=== PATIENT | female | born 1965 | race Caucasian/White ===

== ENCOUNTER → 2016-11-05 | Outpatient (CLI) | payer MEDICAID ==
--- NOTE | 2016-11-05 18:03 | MA ---
Screening Digital Mammogram With iCAD Analysis Clinical Indications: Routine screening. A cyst was diagnosed with breast cancer in her 50s and mater nal grandmother in her 70s. Technique: Standard cephalocaudal projections are obtained. Digital breast tomosynthesis was performe d in the MLO projection with reconstruction at 1.0 mm slice thickness and composite MLO views reconst ructed. This examination is processed by the iCAD computer aided detection system. Comparison: No previous studies are available for comparison; new baseline study. Breast density: Type A: Fatty. Findings: CAD was reviewed. No masses, suspicious calcifications or secondary signs of malignancy are seen. There has been no significant change in the appearance of either breast. Impression: Negative mammogram. BI-RADS 1. Recommendation: Routine mammographic screening in one year as long as [facility]. Negative mammography should not preclude additional workup of a clinically suspicious finding. The patient's information is entered into a reminder system with a target due date for her next mammo gram.
== END ==
LOC: FIMAGING 12:53
DX: Z12.31 Encounter for screening mammogram for malignant neoplasm of breast (principal); Z80.3 Family history of malignant neoplasm of breast
CPT/HCPCS: G0202

== ENCOUNTER 2017-12-31 13:14 | Inpatient (IN) | payer MEDICAID ==
--- NOTE | 2017-12-31 13:50 | EDPHY ---
H & P Stated Complaint: constipation Time Seen by Provider: 12/31/17 13:36 HPI/ROS: CHIEF COMPLAINT: Abdominal distension time several weeks HISTORY OF PRESENT ILLNESS: 52-year-old female history of frequent alcohol use complaining of 7 weeks of progressively enlarging abdominal distension, loose stool, new onset scleral icterus over the past 1 week. She had previously been followed at the [facility] however has not been seen in quite some time. She was seen at urgent care 2 weeks ago and given medications for constipation. She was seen at her 1st visit with Dr. Bautista Ash yesterday with laboratory studies ordered at that point and had outpatient x-rays at [facility] today were abdomen. However she noticed new left ankle swelling today and was told to go to the ER by her PCP for evaluation. She denies abdominal pain. Denies nausea or vomiting. Denies fever chills. Denies melena hematochezia. Denies dyspnea. PRIMARY CARE PROVIDER: Dr. Bautista Ash REVIEW OF SYSTEMS: A ten point review of systems was performed and is negative with the exception of the items mentioned in the HPI PAST MEDICAL & SURGICAL HISTORY: x2 SOCIAL HISTORY:Frequent alcohol use PHYSICAL EXAM (Prior to examination, patient consented to physical exam, hands were washed and my usual and customary physical exam procedures followed) 1) GENERAL: Well-developed, well-nourished, alert and oriented. Appears to be in no acute distress. 2) HEAD: Normocephalic, atraumatic 3) HEENT: Pupils equal, round, reactive to light bilaterally. Positive scleral icterus Nasopharynx, oropharynx, clear, no lesions. Ears bilaterally with normal tympanic membranes. 4) NECK: Full range of motion, no meningeal signs. 5) LUNGS: Clear auscultation bilaterally, no wheezes, no rhonchi, no retractions. 6) HEART: Regular rate and rhythm, no murmur, no heave, no gallop. 7) ABDOMEN: Distended, nontender abdomen, 8) MUSCULOSKELETAL: Moving all extremities, no focal areas of tenderness, no obvious trauma. No peripheral edema or discoloration. 9) BACK: No CVA tenderness, no midline vertebral tenderness, no fluctuance, no step-off, no obvious trauma, no visual or palpable abnormality. 10) SKIN: No rash, no petechiae. 11) Psychiatric: Patient is oriented X 3, there is no agitation. DIFFERENTIAL DIAGNOSIS: In no particular include but limited to bowel obstruction, ascites, constipation - Personal History LMP (Females 10-55): Post Menopausal Current Tetanus/Diphtheria Vaccine: Unsure Current Tetanus Diphtheria and Acellular Pertussis (TDAP): Unsure - Medical/Surgical History Hx Asthma: No Hx Chronic Respiratory Disease: No Hx Diabetes: No Hx Cardiac Disease: No Hx Renal Disease: No Hx Cirrhosis: No Hx Alcoholism: Yes Hx HIV/AIDS: No Hx Splenectomy or Spleen Trauma: No Other PMH: 2 , tonsilectomy, SAFIA knee surgery, - Social History Smoking Status: Current some day smoker Constitutional: Initial Vital Signs Temperature (C) 36.9 C 12/31/17 13:21 Heart Rate 108 H 12/31/17 13:21 Respiratory Rate 16 12/31/17 13:21 Blood Pressure 111/84 H 12/31/17 13:21 O2 Sat (%) 96 12/31/17 13:21 O2 Delivery Mode Room Air Allergies/Adverse Reactions: No Known Allergies Allergy (Unverified 12/31/17 13:21) Home Medications: Medication Instructions Recorded Herbals/Supplements -Info Only 1 ea PO DAILY 12/31/17 Levothyroxine [Synthroid 88 mcg 88 mcg PO DAILY06 12/31/17 (*)] Magnesium Oxide [Magnesium Oxide 800 mg PO DAILY 12/31/17 400 mg (*)] Furosemide [Lasix 40 MG (*)] 40 mg PO DAILY #30 tab 01/01/18 Spironolactone [Aldactone] 50 mg PO DAILY #30 tab 01/01/18 Medical Decision Making ED Course/Re-evaluation: Patient was re-evaluated with serial examinations in the case discussed with secondary supine position Dr. Elvis Siddiqui in the ER. Patient has new onset, progressive ascites, jaundice. Plan will be admission. No altered mentation. 3:05 p.m.: Consultation with Dr. Omid Faith who will admit patient. Requested paracentesis be ordered - Data Points Laboratory Results: Laboratory Results 12/31/17 13:30 12/31/17 13:30 Medications Given: Discontinued Medications Furosemide (Lasix) 40 mg PO DAILY ANURADHA Stop: 06/30/18 08:59 Last Admin: 01/01/18 08:45 Dose: 40 mg Levothyroxine Sodium (Synthroid) 88 mcg PO DAILY06 ANURADHA Stop: 06/30/18 05:59 Last Admin: 01/01/18 05:21 Dose: 88 mcg Magnesium Oxide (Magnesium Oxide) 800 mg PO DAILY ANURADHA Stop: 06/30/18 08:59 Last Admin: 01/01/18 08:45 Dose: 800 mg Spironolactone (Aldactone) 50 mg PO DAILY ANURADHA Stop: 06/30/18 08:59 Last Admin: 01/01/18 08:45 Dose: 50 mg Departure - Departure Disposition: [facility] Acute Clinical Impression: Hyperbilirubinemia Ascites Qualifiers: Ascites type: due to alcoholic cirrhosis Qualified Code(s): K70.31 - Alcoholic cirrhosis of liver with ascites Condition: Fair
[2017-12-31 14:01] LABS: PLATELET COUNT 200 10^3/uL (150-400)
[2017-12-31 14:09] LABS: INR 1.3 (0.83-1.16); PROTIME(PATIENT) 16.4 SEC (12.0-15.0)
[2017-12-31] MEDS ORDERED: IOPAMIDOL (ISOVUE-300) 100 ML BTL ONE (14:38)
[2017-12-31] MEDS ORDERED: LIDOCAINE 1% 300 MG/30 ML SDV ONE (16:04)
--- NOTE | 2017-12-31 17:24 | PDRADPN ---
Radiology Procedure Note Date of Procedure: 12/31/17 Radiologist: Fabrice Crespo Anesthesia: Local (Specify) Pre-op Diagnosis: ascites Post-op Diagnosis: same Indication: distention Procedure: paracentesis Finding(s): ~2L clear yellow fluid Inf/Abcess present in the surg proc area at time of surgery?: No EBL: Minimal Specimen(s): yes
[2017-12-31] MEDS ORDERED: ONDANSETRON 4 MG/2 ML VIAL IVP PRN (18:03)
[2017-12-31] MEDS ORDERED: ONDANSETRON DISINTEGRATING 4 MG TAB PO PRN (18:03)
--- NOTE | 2017-12-31 18:52 | GHP ---
[f rep st] HISTORY AND PHYSICAL DATE OF ADMISSION: 12/31/2017 HISTORY OF PRESENT ILLNESS: The patient is a 52-year-old female with a history of hypothyroidism and previous very heavy alcohol use, who presents with the development of signs of liver disease in the last couple of days. It sounds like there is increasing abdominal girth in the last few days. She s aw her primary care doctor and was told she was constipated. Today, she presents with notable jaundi ce and pedal edema, as well as increasing abdominal distention. In the emergency department, she was found to have elevated liver tests and abdominal imaging consist ent with portal hypertension, cirrhosis, and ascites. She says she drank heavily for years, but has not had much alcohol in the last 6 years. She does not use IV drugs or has she ever. She is not a heavy Tylenol use. There is no family history of early liver disease. She has had a recent laryngitis-type viral illness, but nothing else. She has notice d a rash on her chest. She has had no black stool. No hematemesis. No coffee-ground emesis. REVIEW OF SYSTEMS: A complete 10-point review of systems was conducted and negative except as noted in the HPI. PAST MEDICAL HISTORY: 1. Hypothyroidism. 2. Heavy alcohol use. FAMILY HISTORY: Reviewed and unremarkable. ALLERGIES: No known drug allergies. HOME MEDICATIONS: Levothyroxine and mag oxide. SOCIAL HISTORY: Minimal alcohol now. She has a couple cigarettes a day. She is working at [email or web address]. 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 PHYSICAL EXAMINATION: VITAL SIGNS: Temp 37, blood pressure 111/84, pulse 108 and now 95, breathing 16 times a minute, 96% on room air. GENERAL: No acute distress. HEENT: Sclerae anicteric. Oropharynx is clear. Mucous membranes are moist. NECK: Supple, without lymphadenopathy or JVD. LUNGS: Clear to auscultation bilaterally. HEART: S1, S2. Not tachycardic. ABDOMEN: Distended. Her liver edge is palpable about 5 cm below the costal margin. There is ascite s. LOWER EXTREMITIES: Show trace edema bilaterally. Calves are nontender. SKIN: Shows spider hemangioma on the chest and broken blood vessels on her face. NEUROLOGIC: Exam is nonfocal. There is no asterixis. LABORATORY DATA: White count 13.5, hematocrit 36, MCV elevated at 105, platelets 200,000. INR is 1. 3. Sodium 130, potassium 3.7, chloride 95, bicarb 25, BUN 3, creatinine 0.4. Bilirubin 6.7, AST 159 , ALT 46, alkaline phosphatase 260. Lipase is 309, slightly elevated. Peritoneal fluid studies are pending. Abdominal CT images reviewed and interpreted by me showed portal hypertension, with evidenc e of patency of the portal vein and other veins and the hepatic vein. There is a gallstone with no e vidence of cholecystitis or biliary obstruction. There is a 2.5 cm solid caudate lobe lesion. Ultra sound of the lower extremities showed no DVT in the left leg. I have discussed the case with TORO Crowell, of the emergency department, as well as Dr. Serafin huff. ASSESSMENT AND PLAN: A 52-year-old female, who presents with cirrhosis. 1. Cirrhosis. The etiology is presumably alcohol. There is a bit of a lag time between her cessati on of alcohol, as she reports it, and the onset of symptoms. I have sent an acute hepatitis panel an d a Tylenol level. She does not have an active, fulminant hepatitis. I think the autoimmune workup can be withheld at this time. I will have GI see her tomorrow. 2. Ascites. The patient is clinically alert. I do not suspect spontaneous bacterial peritonitis, b ut the Gram stain is pending. I will follow up on that. I will also initiate diuretic therapy. 3. Hyponatremia. This is mild. 4. New cirrhosis. Addendum: I will send iron studies as well. 5. Coagulopathy secondary to liver disease. 6. Jaundice secondary to liver disease. 7. Prophylaxis. Pharmacologic prophylaxis is contraindicated by liver disease and coagulopathy. DISPOSITION: Inpatient status. /[id number]/MODL
[2018-01-01 05:20] LABS: PLATELET COUNT 180 10^3/uL (150-400)
[2018-01-01 05:38] LABS: INR 1.41 (0.83-1.16); PROTIME(PATIENT) 17.4 SEC (12.0-15.0)
[2018-01-01] MEDS ORDERED: LEVOTHYROXINE 88 MCG TAB PO SCH (06:00)
[2018-01-01 06:22] LABS: HEPATITIS B SURFACE ANTIGEN NEGATIVE (NEGATIVE)
[2018-01-01 06:28] LABS: HEPATITIS A ANTIBODY IGM (BCH) NEGATIVE (NEGATIVE); HEPATITIS B CORE AB IGM NEGATIVE (NEGATIVE)
[2018-01-01 06:39] LABS: HEPATITIS C ANTIBODY TOTAL NEGATIVE (NEGATIVE)
[2018-01-01 08:15] VITALS: RESP 16
[2018-01-01] MEDS ORDERED: SPIRONOLACTONE 50 MG TAB PO SCH (09:00)
[2018-01-01] MEDS ORDERED: FUROSEMIDE 40 MG TAB PO SCH (09:00)
[2018-01-01] MEDS ORDERED: MAGNESIUM OXIDE 400 MG TAB PO SCH (09:00)
--- NOTE | 2018-01-01 11:07 | ASMTCMCOM ---
CM Note CM Note Notes: Patient admitted for abdominal pain, distention, and other sx of liver disease. She will be seen by GI. Patient is normally independent and employed. No acute therapies have been ordered. Discharge needs are TBD. Case Management available if any needs arise. Date Signed: 01/01/2018 11:06 AM Electronically Signed By:Sia Zambrano RN
--- NOTE | 2018-01-01 11:54 | ASMTCMCOM ---
CM Note CM Note Notes: Met with pt per MD request, discussed drinking and gave her Jamee Kumar resource packet. Pt is living with parents and they will come pick her up, states they are supportive. 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 and requested letter stating she was in the hospital, letter in chart. She has an appt w/her pcp next week and wants to reconnect with her therapist. Pt will dc independent when medically stable. Date Signed: 01/01/2018 11:54 AM Electronically Signed By:Jamee Bourgeois RN
[2018-01-01 12:10] VITALS: PULSE 94
--- NOTE | 2018-01-01 12:20 | GCON ---
[f rep st] CONSULTATION CHIEF COMPLAINT: Alcoholic liver disease. HISTORY OF PRESENT ILLNESS: I have been asked to see this 52-year-old woman by Dr. Rodolfo Faith in consultation for new diagnosis of cirrhosis and ascites. The patient has a history of hypothyroidism and a history of heavy alcohol use. She has been binge drinking recently with vodka. She has noticed increasing abdominal girth and lower extremity edema. She denies any shortness of breath. She was seen by her primary care physician. She was noted to have abnormal liver function tests and instructed to go to the emergency department. She has had a history of drinking significant alcohol for many years. She reports that she had cut back on her alcohol consumption for last 6 years but has been binge drinking recently. She does not use IV drugs. She has no recent use of Tylenol. No family history of liver disease. When she presented to the emergency department she had a white count of 10.59 with a hemoglobin of 10.9, hematocrit 31.7, MCV of 106.4, platelet count was 180,000. PT was 17.4 with an INR of 1.41. Serum chemistries: showed a serum sodium 133, potassium 3.4, chloride 100, CO2 25, BUN of 3 with creatinine 0.4, iron was 225 with a TIBC is 175, percent saturation 14, ferritin was 216, total bilirubin was elevated at 5.5 with an AST of 123, ALT of 144, alkaline phosphatase of 214. Imaging of the liver revealed patent portal vessels and hepatic vein. There was evidence of a cirrhotic appearing liver with ascites and hypertrophic left lobe of the liver. There is a nonspecific solid lesion in the caudate lobe. Radiology has recommended MRI. She did undergo paracentesis; peritoneal fluid was yellow and clear, 187 white cells, 93 RBCs, 2% neutrophils. The patient was started on Lasix 40 mg daily as well as spironolactone 50 mg daily. I was asked to see the patient for further evaluation. PAST MEDICAL HISTORY: Remarkable for anorexia nervosa, bulimia, hypothyroidism , anxiety. PAST SURGICAL HISTORY: She has had previous x2, tonsillectomy adenectomy bilateral knee surgery. FAMILY HISTORY: Noncontributory as it pertains to chief complaint. SOCIAL HISTORY: She drinks vodka as mentioned above. She is a smoker, she reports she is quitting today. MEDICATIONS PRIOR TO ADMISSION: Included Synthroid ALLERGIES: She has no known drug allergies. REVIEW OF SYSTEMS: Negative for 10 systems other than mentioned HPI. PHYSICAL EXAM: VITAL SIGNS: Blood pressure 99/67, heart rate 92, respiratory rate 16, 92% sat, 36.9. GENERAL: Very pleasant, jaundiced appearing woman in no acute distress. She has telangiectasias on the face. HEENT: Normocephalic, atraumatic. EOMI. NECK: Supple. No cervical adenopathy. Mucous membranes moist. LUNGS: Clear. CARDIAC: Normal S1, S2 without murmur. ABDOMEN: Is distended with positive fluid wave. Nonpalpable spleen and liver. Nontender. EXTREMITIES: Without clubbing, cyanosis, edema. SKIN: Warm, dry, intact. Jaundice. PSYCHIATRIC: Alert, oriented x3 with normal affect. NEUROLOGIC: Nonfocal. No flap/asterixis. LABORATORY DATA: As above. IMPRESSION: A 52-year-old woman with alcoholic liver disease with clinical picture consistent with superimposed alcoholic hepatitis. Patient with underlying cirrhosis and portal hypertension. RECOMMENDATIONS: 1. A 2 g low sodium diet. 2. Continue on Lasix 40 mg a day and would increase Aldactone to 100 mg a day. 3. Patient will need to have renal function monitored after starting diuretics. I would recommend following BUN and creatinine in the hospital and as an outpatient. 4. Patient's discriminant function is less than 32, does not require steroids. Patient will need close followup with hepatology/GI. Thank you for allowing me to participate in the care of this patient. 5. Recommend MRI of the liver with AFP to further evaluate abnormality described on CT Scan of the abdomen 6. Hepatitis serology to be complete. HBsAg, HBsAb, HCV Ab, Fe, TIBC, Ferritin and JENNIFER ad antismooth muscle Ab. Would check HAV IgG, if negative and not Immunized she she undergo immunization. /[id number]/MODL MTDD
--- NOTE | 2018-01-01 12:55 | GDS ---
[f rep st] DISCHARGE SUMMARY DISCHARGE DIAGNOSES: 1. Alcoholic liver disease. 2. Suspect acute alcohol-related hepatitis. 3. Mild hyponatremia. 4. Coagulopathy secondary to liver disease. 5. Nonspecific solid caudate lobe lesion. SPINDLE CARVER: Dr. Homer Toscano. HOSPITAL COURSE BY PROBLEM: Alcoholic liver disease and cirrhosis: The patient presented to the [facility] with ascites. A CT of the abdomen and pelvis was done in the ER, which confirmed the ascites, and also showed a caudate lobe lesion. Paracentesis was done, where over 2 L of fluid were removed. She was started on Lasix and Aldactone. On day of discharge, the patient states she is feeling better. Tumor AFP was drawn, which is current ly pending. Abdominal ultrasound was also ordered to further evaluate the caudate lesion. On day of discharge, once again, the patient states that she feels okay to go home. I urged her to s top drinking. The patient plans to start going to meetings and pursuing sobriety. PHYSICAL EXAM: VITAL SIGNS: On day of discharge, blood pressure 99/67, pulse 92, respiratory rate 1 6, O2 sat 92% on room air. GENERAL: No acute distress. LABORATORY DATA: Labs and studies on this hospital stay. Hepatitis panel was done that was negative . PROCEDURES: Done this hospital stay: Abdominal ultrasound and paracentesis, done on 12/31/2017, ref er to report. DISCHARGE MEDICATIONS: Please refer to discharge medication reconciliation [facility] for details. Preliminary list: New medications on hospital discharge, Lasix 40 mg daily, aldactone 50 mg daily. DISCHARGE INSTRUCTIONS: The patient will be discharged home, she should follow up with her primary c are provider next Thursday, where she should have a comprehensive metabolic panel done prior to the vi sit to ensure she is tolerating diuretics. Once again, she should avoid alcohol. She should follow up with GI of the [facility] as instructed. She does need followup of pending alpha-fetoprotein level a abdominal ultrasound. She may need further workup of this caudate lesion, as indicated pending wo rkup. /[id number]/MODL
--- NOTE | 2018-01-01 15:40 | PDMN ---
Medical Necessity Medical necessity: Pt meets IP criteria per MD; est los >2 mn for eval/tx of new development of signs of liver disease within the last couple days; presents with increasing abdominal distention, notable jaundice & pedal edema; admit for further workup/monitoring; hx heavy drinking; per H&P & order 12/31/17
[2018-01-01 16:16] VITALS: BP 90/57; TEMP 98.8; O2SAT 91
== END 2018-01-01 17:32 | disposition home or self-care (01) | DRG 433 ==
LOC: OBSVTOIN 15:05 → F3E 15:44
PROVIDERS: ADMIT Internal Medicine; ATTEND Family Medicine
PROC: 0W9G3ZZ Drainage of Peritoneal Cavity, Percutaneous Approach (ICD-10-PCS; principal; 2017-12-31)
DX: K70.31 Alcoholic cirrhosis of liver with ascites (principal); K70.11 Alcoholic hepatitis with ascites; F10.20 Alcohol dependence, uncomplicated; K76.6 Portal hypertension; E87.1 Hypo-osmolality and hyponatremia; D68.4 Acquired coagulation factor deficiency; K76.9 Liver disease, unspecified; E03.9 Hypothyroidism, unspecified; F41.9 Anxiety disorder, unspecified; F17.200 Nicotine dependence, unspecified, uncomplicated
CPT/HCPCS: G0472; G0480; Q9967

== ENCOUNTER 2018-01-04 12:39 | Emergency (ER) | payer MEDICAID ==
--- NOTE | 2018-01-04 13:12 | EDPHY ---
H & P Time Seen by Provider: 01/04/18 13:04 HPI/ROS: Chief complaint. Abdominal pain HPI. 52-year-old female here with abdominal distension. Patient was seen and admitted December 31 for same symptoms. She was diagnosed with alcoholic cirrhosis with superimposed alcoholic hepatitis. She had a paracentesis that rib moved 2.1 5 L of fluid. She was discharged home 3 days ago. Since that time she has had gradual reaccumulation of fluid. It feels tight. Otherwise no specific pain. Denies fever, nausea/vomiting, diarrhea. She is taking her diuretics. She is also using low-sodium diet. She has not had opportunity to follow up with Gastroenterology yet. No chest discomfort or trouble breathing. ROS Constitutional. no fever/chills, no weakness Eyes. no problems with vision ENT. no sore throat, no nasal drainage Cardiovascular. no chest pain Respiratory. no shortness of breath, no cough Abdominal. Abdominal distension . no problems urinating MS. no calf pain/swelling, no neck/back pain, no joint pain Skin. no rash Lymph. no swollen glands Neuro. no headache, no dizziness, no difficulty walking or with speech Past Medical/Surgical History: Past medical history this cirrhosis and hepatitis described above, hypothyroid, bulimia, anxiety, Social History: Single, nonsmoker, no recent alcohol Smoking Status: Current some day smoker Physical Exam: General Appearance: Alert well-developed female mild distress vital signs show heart rate 109. Eyes: Scleral icterus. ENT, Mouth: Mucous membranes are moist. Respiratory: There are no retractions, lungs are clear to auscultation. Cardiovascular: Regular rate and rhythm. Gastrointestinal: Abdomen is distended with ascites. Normal bowel sounds. No tenderness Neurological: Awake and alert, sensory and motor exams grossly normal. Skin: Warm and dry, no rashes. Musculoskeletal: Neck is supple nontender. Extremities symmetrical, full range of motion. Psychiatric: Patient is oriented X 3, there is no agitation. Constitutional: Initial Vital Signs Temperature (C) 36.7 C 01/04/18 12:44 Heart Rate 109 H 01/04/18 12:44 Respiratory Rate 16 01/04/18 12:44 Blood Pressure 105/72 01/04/18 12:44 O2 Sat (%) 95 01/04/18 12:44 O2 Delivery Mode Room Air Allergies/Adverse Reactions: No Known Allergies Allergy (Unverified 12/31/17 13:21) Home Medications: Medication Instructions Recorded Herbals/Supplements -Info Only 1 ea PO DAILY 12/31/17 Levothyroxine [Synthroid 88 mcg 88 mcg PO DAILY06 12/31/17 (*)] Magnesium Oxide [Magnesium Oxide 800 mg PO DAILY 12/31/17 400 mg (*)] Furosemide [Lasix 40 MG (*)] 40 mg PO DAILY #30 tab 01/01/18 Spironolactone [Aldactone] 50 mg PO DAILY #30 tab 01/01/18 Medical Decision Making - Diagnostics Imaging Results: Imaging Impressions Abdomen Ultrasound 01/04/18 13:21 Impression: Moderate ascites. Ultrasound of the abdomen prior to paracentesis reviewed by me and discussed with Dr. Crespo shows about 500 mL of fluid. Procedures: IV normal saline ED Course/Re-evaluation: Re-evaluation at 3:30 p.m.. Patient is stable. Paracentesis is offered however she realizes that this is only about 20% the amount of fluid that was drawn off 3-4 days ago and her result will not be significantly different than her pre paracentesis condition today. The patient and I discussed her laboratory evaluation in comparison with her lab several days ago. She is motivated to get better. She is motivated to use her diuretics and low-sodium diet. We discussed treatment plan including criteria for return importance of follow-up and further evaluation. She expresses understanding and agreement Differential Diagnosis: Patient has history of alcoholic hepatitis and cirrhosis. Moderate ascites today. Stable liver function test LFTs improved including her INR and some including her bilirubin worse. No evidence for spontaneous bacterial peritonitis - Data Points Laboratory Results: Laboratory Results 01/04/18 13:40 01/04/18 13:40 01/04/18 01/04/18 01/04/18 13:40 13:40 13:40 WBC 12.28 10^3/uL H 10^3/uL (3.80-9.50) RBC 3.37 10^6/uL L 10^6/uL (4.18-5.33) Hgb 12.5 g/dL L g/dL (12.6-16.3) Hct 35.6 % L % (38.0-47.0) MCV 105.6 fL H fL (81.5-99.8) MCH 37.1 pg H pg (27.9-34.1) MCHC 35.1 g/dL g/dL (32.4-36.7) RDW 14.6 % % (11.5-15.2) Plt Count 181 10^3/uL 10^3/uL (150-400) MPV 11.2 fL fL (8.7-11.7) Neut % (Auto) 78.5 % H % (39.3-74.2) Lymph % (Auto) 8.5 % L % (15.0-45.0) Hancock % (Auto) 9.8 % % (4.5-13.0) Eos % (Auto) 1.9 % % (0.6-7.6) Baso % (Auto) 0.6 % % (0.3-1.7) Nucleat RBC Rel Count 0.0 % % (0.0-0.2) Absolute Neuts (auto) 9.65 10^3/uL H 10^3/uL (1.70-6.50) Absolute Lymphs (auto) 1.04 10^3/uL 10^3/uL (1.00-3.00) Absolute Monos (auto) 1.20 10^3/uL H 10^3/uL (0.30-0.80) Absolute Eos (auto) 0.23 10^3/uL 10^3/uL (0.03-0.40) Absolute Basos (auto) 0.07 10^3/uL 10^3/uL (0.02-0.10) Absolute Nucleated RBC 0.00 10^3/uL 10^3/uL (0-0.01) Immature Gran % 0.7 % % (0.0-1.1) Immature Gran # 0.09 10^3/uL 10^3/uL (0.00-0.10) PT 16.8 SEC H SEC (12.0-15.0) INR 1.34 H (0.83-1.16) APTT 36.0 SEC SEC (23.0-38.0) Sodium 126 mEq/L L mEq/L (135-145) Potassium 3.4 mEq/L L mEq/L (3.5-5.2) Chloride 91 mEq/L L mEq/L (97-110) Carbon Dioxide 24 mEq/l mEq/l (22-31) Anion Gap 11 mEq/L mEq/L (8-16) BUN 6 mg/dL L mg/dL (7-23) Creatinine 0.5 mg/dL L mg/dL (0.6-1.0) Estimated GFR > 60 Glucose 85 mg/dL mg/dL (70-100) Calcium 7.8 mg/dL L mg/dL (8.5-10.4) Total Bilirubin 7.3 mg/dL H mg/dL (0.1-1.4) Conjugated Bilirubin 5.0 mg/dL H mg/dL (0.0-0.5) Unconjugated Bilirubin 2.3 mg/dL H mg/dL (0.0-1.1) AST 163 IU/L H IU/L (14-46) ALT 49 IU/L IU/L (9-52) Alkaline Phosphatase 200 IU/L H IU/L (38-126) Total Protein 6.0 g/dL L g/dL (6.3-8.2) Albumin 2.8 g/dL L g/dL (3.5-5.0) Lipase 306 IU/L H IU/L (23-300) Acetaminophen < 10 mcg/mL L mcg/mL (10-30) Ethyl Alcohol < 10 mg/dL mg/dL (0-10) Departure - Departure Disposition: Home, Routine, Self-Care Clinical Impression: Hyperbilirubinemia Abdominal pain Qualifiers: Abdominal location: generalized Qualified Code(s): R10.84 - Generalized abdominal pain Ascites Qualifiers: Ascites type: due to alcoholic cirrhosis Qualified Code(s): K70.31 - Alcoholic cirrhosis of liver with ascites Condition: Good Instructions: Ascites (ED) Additional Instructions: Continue your diuretics and low-sodium diet. Keep your follow-up appointment with Dr. Ash. Return for worsening pain, fever, trouble breathing. Referrals: AUGUSTINE ASH [Primary Care Provider] - As per Instructions
[2018-01-04 13:50] LABS: PLATELET COUNT 181 10^3/uL (150-400)
[2018-01-04 13:59] LABS: INR 1.34 (0.83-1.16); PROTIME(PATIENT) 16.8 SEC (12.0-15.0)
[2018-01-04 15:50] VITALS: BP 111/65; PULSE 100; RESP 18; TEMP 98.2; O2SAT 93
== END 2018-01-04 15:50 | disposition home or self-care (01) ==
DX: E80.6 Other disorders of bilirubin metabolism (principal); K70.31 Alcoholic cirrhosis of liver with ascites; F17.200 Nicotine dependence, unspecified, uncomplicated
CPT/HCPCS: G0480

== ENCOUNTER → 2018-06-18 | Outpatient (CLI) | payer MEDICAID | LOC: FIMAGING 07:34 | PROVIDERS: ATTEND Physician Assistant | DX: Z12.31 Encounter for screening mammogram for malignant neoplasm of breast (principal); Z80.3 Family history of malignant neoplasm of breast ==

== ENCOUNTER → 2018-10-06 | Outpatient (CLI) | payer MEDICAID | LOC: FIMAGING 07:17 | PROVIDERS: ATTEND Internal Medicine | DX: K76.0 Fatty (change of) liver, not elsewhere classified (principal); K80.20 Calculus of gallbladder without cholecystitis without obstruction ==